=== PATIENT | male | born 1960 | race Caucasian/White ===

== ENCOUNTER 2020-05-06 14:44 | Emergency (ER) | payer MEDICARE ==
--- NOTE | 2020-05-06 16:24 | ER Document Report ---
ED Medical Screen (RME) - General Chief Complaint: Leg Swelling Stated Complaint: LEG SWELLING Time Seen by Provider: 05/06/20 16:16 Primary Care Provider: MITUL BUNN MD [Primary Care Provider] - Follow up as needed Mode of Arrival: Wheelchair Information source: Patient Notes: 59-year-old male presented to ED for complaint of left leg swelling more so when he walks. He states the pain gets much worse when he stands and walks. He states his daughter told him to come to the emergency room to get checked out. From his medications we have reduced that he is on anxiety depression reflux high blood pressure seizures he states he has had a stroke and TBI. He states he does not remember his surgeries and does not remember his medical history. I have greeted and performed a rapid initial assessment of this patient. A comprehensive ED assessment and evaluation of the patient, analysis of test results and completion of medical decision making process will be conducted by an additional ED providers. - Related Data Allergies/Adverse Reactions: No Known Allergies Allergy (Unverified 11/17/10 14:36) Physical Exam - Vital signs Vitals: Temp Pulse Resp BP Pulse Ox 97.7 F 104 H 16 119/74 98 05/06/20 14:52 05/06/20 14:52 05/06/20 14:52 05/06/20 14:52 05/06/20 14:52 Course - Vital Signs Vital signs: Temp Pulse Resp BP Pulse Ox 97.7 F 104 H 16 119/74 98 05/06/20 14:52 05/06/20 14:52 05/06/20 14:52 05/06/20 14:52 05/06/20 14:52 Doctor's Discharge - Discharge Referrals: MITUL BUNN MD [Primary Care Provider] - Follow up as needed
[2020-05-06 16:46] LABS: ABSOLUTE EOSINOPHILS # (AUTO) 0.1 10^3/uL (0.0-0.6); ABSOLUTE LYMPHOCYTES (AUTO) 1.1 10^3/uL (0.5-4.7); ABSOLUTE MONOCYTES (AUTO) 0.4 10^3/uL (0.1-1.4); BASOPHILS % (AUTO) 0.5 % (0-2); EOSINOPHILS % (AUTO) 1.4 % (0-6); HEMATOCRIT 39.9 % (37.9-51.0); HEMOGLOBIN 13.2 g/dL (13.5-17.0); LYMPHOCYTES % (AUTO) 19.8 % (13-45); MEAN CORPUSCULAR HEMOGLOBIN 29.7 pg (27.0-33.4); MEAN CORPUSCULAR HGB CONC 33.2 g/dL (32.0-36.0); MEAN CORPUSCULAR VOLUME 89 fl (80-97); MONOCYTES % (AUTO) 6.7 % (3-13); PLATELET COUNT 273 10^3/uL (150-450); RED BLOOD COUNT 4.46 10^6/uL (4.35-5.55); RED CELL DISTRIBUTION WIDTH 14.8 % (11.5-14.0); SEGMENTED NEUTROPHILS % (AUTO) 71.6 % (42-78); TOTAL CELLS COUNTED % (AUTO) 100 %; WHITE BLOOD COUNT 5.6 10^3/uL (4.0-10.5)
--- NOTE | 2020-05-06 17:00 | RADIOLOGY REPORT (SQ) ---
EXAM DESCRIPTION: CHEST 2 VIEWS IMAGES COMPLETED DATE/TIME: 05/06/2020 4:43 pm REASON FOR STUDY: Pedal edema COMPARISON: 11/09/2010 EXAM PARAMETERS: NUMBER OF VIEWS: two views TECHNIQUE: Digital Frontal and Lateral radiographic views of the chest acquired. RADIATION DOSE: NA LIMITATIONS: none FINDINGS: LUNGS AND PLEURA: No opacities, masses or pneumothorax. No pleural effusion. MEDIASTINUM AND HILAR STRUCTURES: No masses or contour abnormalities. HEART AND VASCULAR STRUCTURES: Heart normal size. No evidence for failure. BONES: No acute findings. 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 OTHER: No other significant finding. IMPRESSION: NO ACUTE RADIOGRAPHIC FINDING IN THE CHEST. TECHNICAL DOCUMENTATION: JOB ID: [id number] 2010 [employer]- All Rights Reserved Reading location - IP/workstation name: [email or web address]
[2020-05-06 17:01] LABS: ALBUMIN 4.5 g/dL (3.5-5.0); ALKALINE PHOSPHATASE 106 U/L (38-126); ANION GAP 9 (5-19); ASPARTATE AMINO TRANSFERASE 26 U/L (17-59); BILIRUBIN,TOTAL 0.3 mg/dL (0.2-1.3); BLOOD UREA NITROGEN 17 mg/dL (7-20); CALCIUM 10.3 mg/dL (8.4-10.2); CARBON DIOXIDE 24 mmol/L (22-30); CHLORIDE 113 mmol/L (98-107); GLUCOSE 76 mg/dL (75-110); POTASSIUM 4.7 mmol/L (3.6-5.0); TOTAL PROTEIN 7.6 g/dL (6.3-8.2)
--- NOTE | 2020-05-06 17:28 | ER Document Report ---
Entered by ILIA MCCAIN SCRIBE 05/06/20 1727 Acting as scribe for:HENRIQUE NGUYEN MD ED Extremity Problem, Lower - General Chief Complaint: Leg Swelling Stated Complaint: LEG SWELLING Time Seen by Provider: 05/06/20 16:16 Mode of Arrival: Wheelchair Information source: Patient Cannot obtain history due to: Mentally challenged Notes: This 59 year old male patient presents to the emergency department today with complaints of left leg swelling and pain for the last week and a half. Patient is wearing a brace on his left knee which he reports he has been wearing for quite a long time and he does not think it is related to his left left leg swelling today. Patient wears a left knee brace with a hole cut out for the patella. He states that prevents his patella from going outward when he walks, he appears to be describing a subluxing patella. By history it has never gone out and gotten caught in needing reducing. - Related Data Allergies/Adverse Reactions: No Known Allergies Allergy (Unverified 11/17/10 14:36) Past Medical History - General Information source: Patient Cannot obtain history due to: Mentally challenged - Social History Smoking Status: Never Smoker Cigarette use (# per day): No Frequency of alcohol use: None Drug Abuse: None Family History: Reviewed & Not Pertinent - Past Medical History Cardiac Medical History: Reports: Hx Hypercholesterolemia, Hx Hypertension Neurological Medical History: Reports: Hx Seizures GI Medical History: Reports: Hx Gastroesophageal Reflux Disease Psychiatric Medical History: Reports: Hx Anxiety Traumatic Medical History: Reports: Hx Traumatic Brain Injury Surgical Hx: Negative Review of Systems - Review of Systems Constitutional: No symptoms reported EENT: No symptoms reported Cardiovascular: No symptoms reported Respiratory: No symptoms reported Gastrointestinal: No symptoms reported Genitourinary: No symptoms reported Male Genitourinary: No symptoms reported Musculoskeletal: See HPI, Leg swelling, Ankle swelling Skin: No symptoms reported Hematologic/Lymphatic: No symptoms reported Neurological/Psychological: No symptoms reported -: Yes All other systems reviewed and negative Physical Exam - Vital signs Vitals: Temp Pulse Resp BP Pulse Ox 97.7 F 104 H 16 119/74 98 05/06/20 14:52 05/06/20 14:52 05/06/20 14:52 05/06/20 14:52 05/06/20 14:52 - Notes Notes: Physical Exam: General: Alert, appears well. HEENT: Normocephalic. Atraumatic. PERRL. Extraocular movements intact. Oropharynx clear. Neck: Supple. Non-tender. Respiratory: No respiratory distress. Clear and equal breath sounds bilaterally. Cardiovascular: Regular rate and rhythm. Abdominal: Normal Inspection. Non-tender. No distension. Normal Bowel Sounds. Back: No gross abnormalities. Extremities: Moves all four extremities. Upper extremities: Normal inspection. Normal ROM. Lower extremities: Pitting edema bilaterally L > R. There are large distended varicocities to the left medial calf with some tenderness on palpation of the bulging veins. There is also tenderness to palpate the calf. He is wearing an elastic type left knee brace with an opening for the patella. This brace is extremely tight, especially at the distal elastic margin which is actually digging into the skin. The brace was pulled off, and over a short amount of time the varicosities were much less prominent. Neurological: Normal cognition. AAOx4. Normal speech. Psychological: Normal affect. Normal Mood. Skin: Warm. Dry. Normal color. Course - Re-evaluation Re-evalutation: 05/06/20 19:12 I discussed the findings with the patient. It appears that the extremely tight knee bracing he is wearing is contributing to or may have even caused the chronic DVT in his left lower extremity. After the brace is been off for about 2 hours, the calf is softer and less tender. The ring around the leg just below the knee caused by the brace is still present. The patient is on Carafate on a chronic basis, he is not sure if it is for ulcers but he is not anticoagulated. I did advise the patient for the time being this chronic problem did not need urgent anticoagulation. I am concerned about the possibility of a gastric hemorrhage due to him being on Carafate to prevent a problem. I am also concerned about the potential for him to fall and strike his head as he is unsteady and does have difficulty walking. He is advised to follow-up with his primary care to discuss whether or not to institute any type of anticoagulation. He is being referred to [facility] for surgery to evaluate his left knee p roblem and figure out the best method for keeping his patella from subluxing without compressing the leg veins. - Vital Signs Vital signs: Temp Pulse Resp BP Pulse Ox 97.7 F 104 H 16 119/74 98 05/06/20 14:52 05/06/20 14:52 05/06/20 14:52 05/06/20 14:52 05/06/20 14:52 - Laboratory Result Diagrams: 05/06/20 16:27 05/06/20 16:27 Laboratory results interpreted by me: 05/06/20 05/06/20 05/06/20 16:27 16:27 16:27 Hgb 13.2 L RDW 14.8 H D-Dimer Sodium 145.9 H Chloride 113 H Creatinine 1.29 H Est GFR (MDRD) Non-Af 57 L Calcium 10.3 H Valproic Acid 31.5 L 05/06/20 17:27 Hgb RDW D-Dimer 1.29 H Sodium Chloride Creatinine Est GFR (MDRD) Non-Af Calcium Valproic Acid - Diagnostic Test Radiology reviewed: Reports reviewed - Venous Doppler shows chronic thrombus in the common femoral vein in the femoral vein that is nonocclusive. Discharge - Discharge Clinical Impression: Peripheral edema Chronic deep vein thrombosis (DVT) of left lower extremity Qualifiers: Affected thrombotic vein of extremity: unspecified vein of extremity Qualified Code(s): I82.502 - Chronic embolism and thrombosis of unspecified deep veins of left lower extremity Condition: Stable Disposition: HOME, SELF-CARE Additional Instructions: Chronic DVT Outpatient Treatment: You have a chronic deep venous thrombosis (DVT) in your left leg. Keep your legs elevated. A heating pad, 20 minutes every two hours, can help with leg pain. For now, keep walking to a minimum. Don't do any physical work, lifting, or exercise. DVT can cause serious complications. The clots can damage the valves in the veins, leading to chronic pain and swelling. If a clot breaks loose and floats upstream, it can stick in the lungs. A clot in the lungs, called pulmonary embolism, can be life-threatening. Call the doctor or return if you develop increasing leg pain and swelling, leg discoloration, fever, chest pain, or shortness of breath. Your chronic deep venous thrombosis, or blood clots in the leg veins is most likely caused by the knee brace you have been wearing. It is best to leave the brace off is much as possible, and if you must wear a brace, find one that does not fit nearly as tight. Elevate your legs as much as possible, and try to leave any kind of brace off for as many hours a day as you can. Follow-up with your primary care provider in the next few days to discuss whether or not to take any anticoagulation. Follow-up with [facility] surgery orthopedic doctors for evaluation of your knee and seeing what sort of support for your knee would be the best, given your problem now with the chronic blood clots. RETURN TO THE EMERGENCY ROOM IF ANY NEW OR WORSENING SYMPTOMS. Referrals: BRUCE FOX PA [Primary Care Provider] - Follow up in 3-5 days [facility] [Provider Group] - Follow up in 3-5 days (Call to schedule an appointment.) I personally performed the services described in the documentation, reviewed and edited the documentation which was dictated to the scribe in my presence, and it accurately records my words and actions.
[2020-05-06 17:53] LABS: INTERNATIONAL RATION (INR) 1.03; PROTHROMBIN TIME 13.7 SEC (11.4-15.4)
[2020-05-06 17:54] LABS: PARTIAL THROMBOPLASTIN TIME 34.4 SEC (23.5-35.8)
[2020-05-06 17:56] LABS: D-DIMER 1.29 ug/mL (0.00-0.50)
--- NOTE | 2020-05-06 18:34 | RADIOLOGY REPORT (SQ) ---
EXAM DESCRIPTION: VENOUS UNILATERAL LOWER IMAGES COMPLETED DATE/TIME: 05/06/2020 6:05 pm REASON FOR STUDY: Leg swelling left COMPARISON: None. TECHNIQUE: Dynamic and static price scale and color images acquired of the left leg venous system. Se lected spectral images acquired with additional compression and augmentation maneuvers. The contralat eral common femoral vein and saphenofemoral junction were also imaged. Images stored on PACS. LIMITATIONS: None. FINDINGS: There is chronic thrombus in the common femoral vein and femoral vein that is nonocclusive . CONTRALATERAL COMMON FEMORAL VEIN AND SAPHENOFEMORAL JUNCTION: Normal phasicity, compression and augmentation. No visualized echogenic material on price scale. No de fects on color images. IMPRESSION: Chronic DVT in the left lower extremity as described. TECHNICAL DOCUMENTATION: JOB ID: [id number] 2010 [employer]- All Rights Reserved Reading location - IP/workstation name: [email or web address]
[2020-05-06 19:45] VITALS: BP 121/67
== END 2020-05-06 19:40 | disposition home or self-care (01) ==
LOC: ER 14:44
DX: I82.512 Chronic embolism and thrombosis of left femoral vein (principal); I83.892 Varicose veins of left lower extremity with other complications; R26.81 Unsteadiness on feet; I10 Essential (primary) hypertension; K21.9 Gastro-esophageal reflux disease without esophagitis; Z79.899 Other long term (current) drug therapy
CPT/HCPCS: 36415; 71046; 80053; 80164; 85025; 85379; 85610; 85730; 93971; 99285